=== PATIENT | female | born 1990 | race Hispanic/Latino ===

== ENCOUNTER 2023-01-08 05:30 | Inpatient (IN) | payer OTHER ==
[2023-01-08 06:06] VITALS: BMI 37.5
[2023-01-08] MEDS ORDERED: hydrALAZINE 20 MG/ML VIAL SLOW IVP PRN ×2 (06:27→15:56)
[2023-01-08] MEDS ORDERED: Promethazine HCl 25 MG/ML VIAL IM PRN ×3 (06:27→15:56)
[2023-01-08] MEDS ORDERED: Butorphanol Tartrate 1 MG/ML VIAL SLOW IVP PRN (06:27)
[2023-01-08] MEDS ORDERED: Ibuprofen 800 MG TAB PO PRN (06:27)
[2023-01-08] MEDS ORDERED: Lidocaine 1% (PF) 30 ML VIAL SC PRN (06:27)
[2023-01-08] MEDS ORDERED: Ondansetron PF 4 MG/2 ML Vial IVP PRN ×3 (06:27→15:56)
[2023-01-08] MEDS ORDERED: Acetaminophen 500 MG TAB PO PRN (06:27)
[2023-01-08] MEDS ORDERED: Carboprost 250 MCG/ML AMP IM PRN (06:27)
[2023-01-08] MEDS ORDERED: Misoprostol 200 MCG TAB PR PRN (06:27)
[2023-01-08] MEDS ORDERED: HYDROcodone/Acetaminophen 5/325 mg Tablet PO PRN ×3 (06:27→15:56)
[2023-01-08] MEDS ORDERED: Diphenoxylate HCl/Atropine Tablet PO PRN (06:27)
[2023-01-08] MEDS ORDERED: Methylergonovine 0.2 MG/ML VIAL IM PRN (06:27)
[2023-01-08] MEDS ORDERED: NS w/ Oxytocin 30 units 500 ML ONE (06:29)
[2023-01-08] MEDS ORDERED: NS w/ Oxytocin 30 units 500 ML IV SCH ×2 (06:30)
[2023-01-08] MEDS: Lactated Ringer's 1,000 ML IV SCH ×2 (06:39→11:21)
[2023-01-08 06:54] LABS: Hemoglobin 11.8 g/dL (12.0-15.5); Mean Corpuscular HGB CONC 34.5 g/dL (32.0-36.0); Mean Corpuscular Hemoglobin 29.6 pg (27.0-33.0); Mean Corpuscular Volume 85.9 fl (81.6-98.3); Mean Platelet Volume 11.8 fl (7.4-10.4); Platelet Count 170 10x3/uL (150-450); RBC Distribution Width 13.4 % (11.5-14.5); Red Blood Cell (RBC) Count 3.98 10x6/uL (3.90-5.03); White Blood Cell (WBC) Count 8.3 10x3/uL (3.5-10.5)
[2023-01-08 07:21] LABS: SARS-CoV-2 NAA Rapid Test Not Detected (NotDetected)
[2023-01-08 07:30] LABS: HBSAg Index 0.12 S/CO (0-0.99); Hep B Surf Ag Non-Reactive S/CO (NonReactive)
[2023-01-08 07:31] LABS: Syphilis Antibody Nonreactive (Nonreactive); Syphilis Antibody Index 0.04 S/CO (<1.00 Non-Reactive)
[2023-01-08] MEDS ORDERED: Bupivacaine 0.25% HCL 30 ML VIAL ONE (08:00)
[2023-01-08] MEDS ORDERED: Fentanyl 2 mcg/Bup 0.1% Cadd 100 ML ONE (10:32)
[2023-01-08] MEDS ORDERED: Acetaminophen 325 MG TAB PO PRN (11:25)
[2023-01-08] MEDS ORDERED: Lactated Ringer's 500 ML IV PRN (11:25)
[2023-01-08] MEDS ORDERED: ePHEDrine Sulfate 50 MG/10 ML VIAL SLOW IVP PRN (11:25)
[2023-01-08] MEDS ORDERED: Naloxone HCl 0.4 mg/ml Vial IVP PRN ×2 (11:25)
[2023-01-08] MEDS ORDERED: Moisturizing Cream (Eucerin) 113 GM JAR TOP PRN (11:25)
[2023-01-08] MEDS ORDERED: diphenhydrAMINE 50 MG/ML VIAL IVP PRN (11:25)
[2023-01-08] MEDS ORDERED: Communication Order-Pharmacy FS SCH (11:30)
[2023-01-08] MEDS ORDERED: Fentanyl 2 mcg/Bupivacaine 0.1% Cassette 100 ML EPIDURAL SCH (11:30)
[2023-01-08] MEDS ORDERED: Boostrix 0.5 ML (Tdap) VIAL (>/=7 yrs of age) IM ONE (15:56)
[2023-01-08] MEDS ORDERED: diphenhydrAMINE 25 MG CAP PO PRN (15:56)
[2023-01-08] MEDS ORDERED: Milk Of Magnesia 30 ML UDCUP PO PRN (15:56)
[2023-01-08] MEDS ORDERED: Bisacodyl 10 MG SUPP PR PRN (15:56)
[2023-01-08] MEDS ORDERED: Lanolin Ointment 7 GM TUBE TOP PRN (15:56)
[2023-01-08] MEDS ORDERED: Benzocaine-Menthol 82.5 ML CAN TOP PRN (15:56)
[2023-01-08] MEDS ORDERED: Preparation H Ointment 28 GM TUBE PR PRN (15:56)
[2023-01-08] MEDS: Ferrous Sulfate 325 MG TAB PO SCH (17:04)
[2023-01-08] MEDS: Ibuprofen 800 MG TAB PO SCH (20:12)
[2023-01-08] MEDS: Docusate 100 MG CAP PO SCH (20:12)
[2023-01-09] MEDS: Ibuprofen 800 MG TAB PO SCH ×2 (04:04→13:58)
[2023-01-09 04:12] VITALS: TEMP 98.1
[2023-01-09] MEDS: Ferrous Sulfate 325 MG TAB PO SCH (08:29)
[2023-01-09] MEDS: Docusate 100 MG CAP PO SCH (08:30)
[2023-01-09 08:31] VITALS: BP 98/53
[2023-01-09] MEDS ORDERED: Prenatal Vitamin 1 TAB PO SCH (09:00)
== END 2023-01-09 16:59 | disposition home or self-care (01) | DRG 807 ==
LOC: CSHLD 05:39 → CSHPP 15:45
PROVIDERS: ADMIT Student in an Organized Health Care Education/Training Program; ATTEND Student in an Organized Health Care Education/Training Program
PROC: 10E0XZZ Delivery of Products of Conception, External Approach (ICD-10-PCS; principal; 2023-01-08)
PROC: 10907ZC Drainage of Amniotic Fluid, Therapeutic from Products of Conception, Via Natural or Artificial Opening (ICD-10-PCS; 2023-01-08)
PROC: 10H07YZ Insertion of Other Device into Products of Conception, Via Natural or Artificial Opening (ICD-10-PCS; 2023-01-08)
PROC: 0HQ9XZZ Repair Perineum Skin, External Approach (ICD-10-PCS; 2023-01-08)
DX: O48.0 Post-term pregnancy (principal); Z37.0 Single live birth; Z3A.41 41 weeks gestation of pregnancy; O70.0 First degree perineal laceration during delivery; Z20.822 Contact with and (suspected) exposure to COVID-19
CPT/HCPCS: 51702; 85027; 86780; 86850; 86900; 86901; 87340; J2590; J7120; S0020; U0002